=== PATIENT | female | born 1980 | race African-American/Black ===

== ENCOUNTER 2017-06-27 22:21 | Inpatient (IN) | payer OTHER ==
[~2017-06-27] VITALS: Ht 160 cm; Wt 102.0 kg
[~2017-06-27 22:21] MED LIST: ACET50TA PO; ASPI81TA85 PO; FERR325T3 PO; GLYB5TA PO; MOTR200T44 PO; PRENTAB9 PO
[2017-06-28] VITALS (25 sets, daily range): BP systolic 115–177; BP diastolic 63–93
[2017-06-28 00:04] LABS: MEAN CORPUSCULAR HEMOGLOBIN 25.2 pg (27.0-33.0); MEAN CORPUSCULAR VOLUME 78.7 fl (80.0-96.0); RED CELL DISTRIBUTION WIDTH 16.9 % (11.5-14.5); WHITE BLOOD COUNT 6.1 K/mm3 (4.0-10.0)
[2017-06-28] MEDS ORDERED: LACTATED RINGER'S 1000 ML IV STA (00:25)
[2017-06-28] MEDS ORDERED: LR 1,000 ML IV SCH (00:25)
[2017-06-28] MEDS ORDERED: FENTANYL 2MCG/ML ROPIVACAINE 0.2% IN 0.9% NACL 200ML IVBAG As Ordered ONE (00:27)
[2017-06-28] MEDS ORDERED: ONDANSETRON 4MG/2ML VIAL (J2405) IV PRN (01:15)
[2017-06-28] MEDS ORDERED: FENTANYL/ROPIVACAINE/NACL BAG 200 ML EPIDURAL SCH (01:15)
[2017-06-28] MEDS ORDERED: LACTATED RINGER'S 1000 ML IV PRN (01:15)
[2017-06-28] MEDS ORDERED: ePHEDrine SULFATE 25 MG/5 ML(5MG/ML) SYRINGE IV PRN (01:15)
[2017-06-28] MEDS ORDERED: diphenhydrAMINE INJ 50MG/ML VIAL (J1200) IV PRN (01:15)
[2017-06-28] MEDS ORDERED: EPIDURAL COMMENT XX SCH (01:15)
[2017-06-28] MEDS ORDERED: EPIDURAL/PCA KEYS XX PRN (01:15)
[2017-06-28] MEDS ORDERED: NALOXONE INJ 0.4 MG/1 ML VIAL (J2310) IV PRN (01:15)
[2017-06-28] MEDS ORDERED: REFRIGERATOR IV KEYS XX PRN (01:15)
[2017-06-28] MEDS ORDERED: OXYTOCIN DRIP 30 UNITS in APPROPRIATE DILUENT 1 EA IV SCH (02:15)
[2017-06-28] MEDS ORDERED: COLA100C5 PO (02:55)
[2017-06-28] MEDS ORDERED: METHYLERGONOVINE MALEATE 0.2 MG TAB PO PRN (08:15)
[2017-06-28] MEDS ORDERED: RHOGAM 300 MCG (1500 IU) INJ (J2790) IM SCH (08:15)
[2017-06-28] MEDS ORDERED: DOCUSATE SODIUM 100 MG CAP PO PRN (08:15)
[2017-06-28] MEDS ORDERED: DIBUCAINE 1% OINTMENT 30GM TOP PRN (08:15)
[2017-06-28] MEDS ORDERED: MOM 30ML SUSPENSION UDC PO PRN (08:15)
[2017-06-28] MEDS ORDERED: PROMETHAZINE 25 MG TAB PO PRN (08:15)
[2017-06-28] MEDS ORDERED: ACETAMINOPHEN 500 MG TAB PO PRN (08:15)
[2017-06-28] MEDS ORDERED: MEASLES,MUMPS,RUBELLA VACCINE INJ (MMR-II) (90707) SC SCH (08:15)
[2017-06-28] MEDS: IBUPROFEN 800 MG TAB PO PRN ×2 (09:06→20:09)
[2017-06-28] MEDS: PRENATAL VITAMINS CHEWABLE TABLET PO SCH (11:57)
[2017-06-29 06:00] VITALS: BP 144/87
[2017-06-29] MEDS: PRENATAL VITAMINS CHEWABLE TABLET PO SCH (07:56)
[2017-06-29] MEDS: IBUPROFEN 800 MG TAB PO PRN (07:58)
[2017-06-29] MEDS ORDERED: ADACEL/BOOSTRIX VACCINE (DIPHTH/PERTUSS/ACELL/TETANUS)0.5ML SYR (90715) IM ONE (09:00)
[2017-06-29] MEDS ORDERED: IBUP-1114 PO (10:00)
[2017-06-29] MEDS ORDERED: ACET50TA PO (10:00)
[2017-06-29] MEDS ORDERED: COLA100C5 PO (10:01)
== END 2017-06-29 15:00 | disposition home or self-care (01) | DRG 775 ==
LOC: M LDO 22:21 → M LDI 22:56 → M OBS 06-28 10:27
PROVIDERS: ADMIT Student in an Organized Health Care Education/Training Program; ATTEND Student in an Organized Health Care Education/Training Program
PROC: 10E0XZZ Delivery of Products of Conception, External Approach (ICD-10-PCS; principal; 2017-06-28)
PROC: 0KQM0ZZ Repair Perineum Muscle, Open Approach (ICD-10-PCS; 2017-06-28)
DX: O24.429 Gestational diabetes mellitus in childbirth, unspecified control (principal); Z3A.40 40 weeks gestation of pregnancy; O70.1 Second degree perineal laceration during delivery; Z37.0 Single live birth